=== PATIENT | female | born 2000 | race Caucasian/White ===

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

== ENCOUNTER → 2020-02-29 | Outpatient (REF) | payer OTHER ==
[2020-02-29 19:32] LABS: APPEARANCE, URINE HAZY (CLEAR); BACTERIA, URINE AUTO 1+ (NEGATIVE); BILIRUBIN, URINE AUTO NEGATIVE (NEGATIVE); BLOOD, URINE BLOOD NEGATIVE (NEGATIVE); COLOR, URINE YELLOW (YELLOW); GLUCOSE, URINE (UA) AUTO NEGATIVE (NEGATIVE); KETONE, URINE AUTO NEGATIVE (NEGATIVE); LEUKOCYTE ESTERASE, URINE AUTO 1+ (NEGATIVE); MUCUS, URINE SMALL (NEGATIVE); NITRITE, URINE AUTO NEGATIVE (NEGATIVE); PROTEIN, URINE AUTO NEGATIVE (NEGATIVE); RBC, URINE AUTO 2 /HPF (0-3); SPECIFIC GRAVITY URINE AUTO 1.016 (1.002-1.035); SQUAMOUS EPITHELIAL CELL UR AU 3 /HPF (0-6); UROBILINOGEN, URINE AUTO 0.2 mg/dL (0.0-2.0); WBC, URINE AUTO 16 /HPF (0-3)
== END ==
LOC: M LAB REF 16:52
PROVIDERS: ATTEND Pediatrics
DX: N39.0 Urinary tract infection, site not specified (principal)

== ENCOUNTER → 2020-03-29 | Outpatient (CLI) | payer OTHER ==
[2020-03-29 10:45] LABS: ALBUMIN 3.9 GM/DL (3.2-5.2); ALT/SGPT 17 U/L (12-78); BILIRUBIN,TOTAL 0.5 MG/DL (0.2-1.0); BLOOD UREA NITROGEN 15 MG/DL (7-18); CALCIUM LEVEL 8.9 MG/DL (8.5-10.1); CARBON DIOXIDE LEVEL 25 MEQ/L (21-32); CHLORIDE LEVEL 109 MEQ/L (98-107); CHOLESTEROL LEVEL 140 MG/DL (<200); CHOLESTEROL RISK RATIO 2.857 (<5); CREATININE FOR GFR 0.82 MG/DL (0.55-1.30); FREE T4 1.08 NG/DL (0.78-1.33); GLUCOSE, FASTING 86 MG/DL (70-100); HDL CHOLESTEROL 49 MG/DL (>40); LDL CHOLESTEROL 82 MG/DL (<100); NON-HDL-C 91 MG/DL; POTASSIUM SERUM 3.8 MEQ/L (3.5-5.1); SODIUM LEVEL 142 MEQ/L (136-145); TOTAL PROTEIN 7.2 GM/DL (6.4-8.2); TRIGLYCERIDES LEVEL 46 MG/DL (<150)
== END ==
LOC: M LAB 09:19
PROVIDERS: ATTEND Pediatrics
DX: R25.1 Tremor, unspecified (principal)

== ENCOUNTER → 2021-05-13 | Outpatient (REF) | payer OTHER | LOC: M WUC 15:32 | PROVIDERS: ATTEND Physician Assistant | DX: J03.90 Acute tonsillitis, unspecified (principal) ==

== ENCOUNTER → 2021-10-18 | Outpatient (REF) | payer OTHER ==
[2021-10-18 19:12] LABS: APPEARANCE, URINE MANUAL HAZY (CLEAR); BILIRUBIN, URINE MANUAL OBSCURED (NEGATIVE); BLOOD URINE MANUAL POSITIVE (NEGATIVE); COLOR, URINE MANUAL ORANGE (YELLOW); GLUCOSE, URINE (UA) MANUAL OBSCURED mg/dL (NEGATIVE); KETONE, URINE MANUAL OBSCURED mg/dL (NEGATIVE); LEUKOCYTE ESTERASE, URINE MAN OBSCURED (NEGATIVE); NITRITE, URINE MANUAL OBSCURED (NEGATIVE); PROTEIN, URINE MANUAL OBSCURED mg/dL (NEGATIVE); SPECIFIC GRAVITY,URINE MANUAL 1.025 (1.002-1.035); UROBILINOGEN, URINE MANUAL OBSCURED mg/dl (NORMAL)
[2021-10-18 19:24] LABS: BACTERIA, URINE LARGE AMOUNT; HYALINE CAST, URINE NONE SEEN /lpf (0-1); RBC, URINE NONE SEEN /hpf (0-3); SQUAMOUS EPITHELIAL CELL URINE SMALL AMOUNT /hpf (SMALL AMT)
== END ==
LOC: M LAB REF 18:27
PROVIDERS: ATTEND Physician Assistant
DX: N39.0 Urinary tract infection, site not specified (principal)

== ENCOUNTER 2022-11-25 16:43 | Outpatient (CLI) | payer OTHER ==
[~2022-11-25] VITALS: Ht 165.1 cm; Wt 87.6 kg
[~2022-11-25 16:43] MED LIST changes: +PRENTAB9 PO
[2022-11-25] MEDS ORDERED: FLUCONAZOLE 50MG TABLET PO ONE (17:30)
[2022-11-25] MEDS ORDERED: HOME MED LIST COMPLETE! XX SCH (17:35)
[2022-11-25 20:00] LABS: GC DNA AMPLIFICATION NEGATIVE (NEGATIVE)
== END 2022-11-25 17:50 | disposition home or self-care (01) ==
LOC: M LDO 16:43
PROVIDERS: ATTEND Obstetrics & Gynecology
DX: O23.593 Infection of other part of genital tract in pregnancy, third trimester (principal); Z3A.29 29 weeks gestation of pregnancy; Z88.0 Allergy status to penicillin; Z88.1 Allergy status to other antibiotic agents; Z88.2 Allergy status to sulfonamides; Z91.018 Allergy to other foods; Z91.040 Latex allergy status
CPT/HCPCS: 59025; 87810; 87850; G0463

== ENCOUNTER 2022-12-09 19:05 | Outpatient (CLI) | payer OTHER ==
[~2022-12-09] VITALS: Ht 165.1 cm; Wt 90.1 kg
[~2022-12-09 19:05] MED LIST changes: -ALBUTEROL SULFATE 2.5MG/0.5ML INH NEB SOLN INH PRN; -EPINEPHrine INJ 1 MG/ML 1ML AMP IM PRN; -IRON SUCROSE 300 MG in NS 250 ML OVER 90 MIN. IV ONE; -NS 1,000 ML IV SCH; -diphenhydrAMINE 50MG/ML VIAL IV PRN; -methylPREDNISolone 125MG 2ML VIAL IV PRN
[2022-12-09 19:41] VITALS: BP 122/56
== END 2022-12-09 20:20 | disposition home or self-care (01) ==
LOC: M LDO 19:05
PROVIDERS: ATTEND Obstetrics & Gynecology
DX: O26.893 Other specified pregnancy related conditions, third trimester (principal); N98.9 Complication associated with artificial fertilization, unspecified; N96 Recurrent pregnancy loss; Z3A.31 31 weeks gestation of pregnancy; Z88.0 Allergy status to penicillin; Z88.1 Allergy status to other antibiotic agents; Z91.018 Allergy to other foods; Z91.040 Latex allergy status
CPT/HCPCS: 59025; 76815; G0463

== ENCOUNTER → 2022-12-09 | Outpatient (CLI) | payer OTHER ==
[~2022-12-09] VITALS: Ht 167.6 cm; Wt 86.3 kg
[~2022-12-09] MED LIST changes: +ALBUTEROL SULFATE 2.5MG/0.5ML INH NEB SOLN INH PRN; +EPINEPHrine INJ 1 MG/ML 1ML AMP IM PRN; +IRON SUCROSE 300 MG in NS 250 ML OVER 90 MIN. IV ONE; +NS 1,000 ML IV SCH; +diphenhydrAMINE 50MG/ML VIAL IV PRN; +methylPREDNISolone 125MG 2ML VIAL IV PRN
[2022-12-09 13:06] VITALS: BP_SYST 138; BP_SYST 139; BP_DIAS 63; BP_DIAS 78; O2SAT 99
[2022-12-09 16:00] VITALS: BP 113/56; O2SAT 99
== END ==
LOC: M INFU 12:41
PROVIDERS: ATTEND Obstetrics & Gynecology
DX: D50.9 Iron deficiency anemia, unspecified (principal); Z88.0 Allergy status to penicillin; Z88.2 Allergy status to sulfonamides
CPT/HCPCS: 81001; 96365; 96366; J1756

== ENCOUNTER 2022-12-20 21:21 | Outpatient (CLI) | payer OTHER ==
[~2022-12-20] VITALS: Ht 165.1 cm; Wt 89.1 kg
[2022-12-20 21:40] VITALS: BP 110/64
[2022-12-20] MEDS ORDERED: FLUCONAZOLE 50MG TABLET PO ONE (22:40)
== END 2022-12-20 22:48 | disposition home or self-care (01) ==
LOC: M LDO 21:21
PROVIDERS: ATTEND Obstetrics & Gynecology
DX: O23.593 Infection of other part of genital tract in pregnancy, third trimester (principal); Z3A.33 33 weeks gestation of pregnancy; Z88.0 Allergy status to penicillin; Z88.2 Allergy status to sulfonamides; Z91.018 Allergy to other foods; Z91.040 Latex allergy status
CPT/HCPCS: 59025; G0463

== ENCOUNTER 2023-01-13 02:40 | Outpatient (CLI) | payer OTHER ==
[~2023-01-13] VITALS: Ht 165.1 cm; Wt 92.8 kg
[2023-01-13 03:07] VITALS: BP 126/73
[2023-01-13 04:25] VITALS: BP 127/59
[2023-01-13] MEDS ORDERED: FOSFOMYCIN TROMETHAMINE 3 GM POWDER PACKET (MONUROL) PO ONE (04:30)
[2023-01-13] MEDS ORDERED: CLOTRIMAZOLE 1% VAG CR 45 GM PV ONE ×2 (04:40→04:41)
== END 2023-01-13 04:43 | disposition home or self-care (01) ==
LOC: M LDO 02:40
PROVIDERS: ATTEND Obstetrics & Gynecology
DX: O23.593 Infection of other part of genital tract in pregnancy, third trimester (principal); B37.9 Candidiasis, unspecified; Z3A.36 36 weeks gestation of pregnancy; Z88.0 Allergy status to penicillin; Z88.2 Allergy status to sulfonamides; Z88.1 Allergy status to other antibiotic agents; Z91.040 Latex allergy status; Z91.018 Allergy to other foods
CPT/HCPCS: 59025; 81001; 87086; G0463

== ENCOUNTER 2023-01-23 22:25 | Outpatient (CLI) | payer OTHER ==
[~2023-01-23] VITALS: Ht 165.1 cm; Wt 92.2 kg
[2023-01-23 22:45] VITALS: BP 129/60
[2023-01-23] MEDS ORDERED: HOME MED LIST COMPLETE! XX SCH (22:55)
[2023-01-23] MEDS ORDERED: ACETAMINOPHEN 500 MG TAB PO ONE (23:45)
[2023-01-23 23:49] LABS: HEMATOCRIT 31.6 % (36.0-47.0); HEMOGLOBIN 10.5 g/dl (12.0-15.5); MEAN CORPUSCULAR HEMOGLOBIN 29.2 pg (27.0-33.0); MEAN CORPUSCULAR HGB CONC 33.2 g/dl (32.0-36.5); MEAN CORPUSCULAR VOLUME 87.8 fl (80.0-96.0); PLATELET COUNT, AUTOMATED 181 10^3/uL (150-450); WHITE BLOOD COUNT 7.3 10^3/uL (4.0-10.0)
[2023-01-24 00:16] LABS: ALBUMIN 2.5 G/DL (3.2-5.2); ALKALINE PHOSPHATASE 166 U/L (46-116); ALT/SGPT 27 U/L (7.0-40); AST/SGOT 21 U/L (<34); BILIRUBIN,TOTAL 0.2 MG/DL (0.3-1.2); BLOOD UREA NITROGEN 8 MG/DL (9-23); CALCIUM LEVEL 8.6 MG/DL (8.5-10.1); CARBON DIOXIDE LEVEL 21 MMOL/L (20-31); CHLORIDE LEVEL 107 MMOL/L (98-107); GLOMERULAR FILTRATION RATE > 60.0 (>60); GLUCOSE, FASTING 104 MG/DL (60-100); POTASSIUM SERUM 3.7 MMOL/L (3.5-5.1); SODIUM LEVEL 138 MMOL/L (136-145); TOTAL PROTEIN 5.5 G/DL (5.7-8.2)
[2023-01-24 00:51] LABS: APPEARANCE, URINE CLOUDY (CLEAR); BACTERIA, URINE AUTO 1+ (NEGATIVE); BILIRUBIN, URINE AUTO NEGATIVE (NEGATIVE); BLOOD, URINE BLOOD 3+ (NEGATIVE); COLOR, URINE RED (YELLOW); GLUCOSE, URINE (UA) AUTO NEGATIVE (NEGATIVE); KETONE, URINE AUTO NEGATIVE (NEGATIVE); LEUKOCYTE ESTERASE, URINE AUTO NEGATIVE (NEGATIVE); MUCUS, URINE LARGE (NEGATIVE); NITRITE, URINE AUTO NEGATIVE (NEGATIVE); PROTEIN, URINE AUTO 2+ mg/dL (NEGATIVE); RBC, URINE AUTO TNTC /HPF (0-3); SPECIFIC GRAVITY URINE AUTO 1.028 (1.002-1.035); SQUAMOUS EPITHELIAL CELL UR AU 0 /HPF (0-6); WBC, URINE AUTO 0 /HPF (0-3)
[2023-01-24] MEDS ORDERED: diphenhydrAMINE 25MG CAP PO ONE (01:00)
[2023-01-24] MEDS ORDERED: METOCLOPRAMIDE 10MG TAB PO ONE (01:00)
== END 2023-01-24 01:59 | disposition home or self-care (01) ==
LOC: M LDO 22:25
PROVIDERS: ATTEND Obstetrics & Gynecology
DX: O98.513 Other viral diseases complicating pregnancy, third trimester (principal); U07.1 COVID-19; Z3A.38 38 weeks gestation of pregnancy; Z88.0 Allergy status to penicillin; Z88.1 Allergy status to other antibiotic agents; Z88.2 Allergy status to sulfonamides; Z91.018 Allergy to other foods; Z91.040 Latex allergy status
CPT/HCPCS: 59025; 80053; 81001; 85027; 87486; 87581; 87633; 87798; G0463

== ENCOUNTER 2023-02-03 19:43 | Inpatient (IN) | payer OTHER ==
[~2023-02-03] VITALS: Ht 165.1 cm; Wt 94.2 kg
[2023-02-03 20:08] VITALS: BP 127/70
[2023-02-03] MEDS ORDERED: METHYLERGONOVINE MALEATE 0.2MG/ML 1ML VIAL IM PRN (21:45)
[2023-02-03] MEDS ORDERED: TRANEXAMIC ACID INJection 1,000 MG in NS 100 ML IV PRN (21:45)
[2023-02-03] MEDS ORDERED: LIDOCAINE 1% MDV 20ML VIAL INFIL PRN (21:45)
[2023-02-03] MEDS ORDERED: OXYTOCIN DRIP 30 UNITS in IV 1 EA IV PRN ×4 (21:45)
[2023-02-03 22:09] LABS: HEMATOCRIT 39.8 % (36.0-47.0); HEMOGLOBIN 12.9 g/dl (12.0-15.5); MEAN CORPUSCULAR HEMOGLOBIN 28.7 pg (27.0-33.0); MEAN CORPUSCULAR HGB CONC 32.4 g/dl (32.0-36.5); MEAN CORPUSCULAR VOLUME 88.4 fl (80.0-96.0); PLATELET COUNT, AUTOMATED 213 10^3/uL (150-450)
[2023-02-03] MEDS ORDERED: NALOXONE INJ 0.4MG/1ML VIAL IV PRN (23:40)
[2023-02-03] MEDS ORDERED: EPIDURAL/PCA KEYS XX PRN (23:40)
[2023-02-03] MEDS ORDERED: diphenhydrAMINE 50MG/ML VIAL IV PRN (23:40)
[2023-02-03] MEDS ORDERED: ONDANSETRON 4MG 2ML VIAL IV PRN (23:40)
[2023-02-03] MEDS ORDERED: LR 500 ML IV PRN (23:40)
[2023-02-03] MEDS ORDERED: ePHEDrine SULFATE 25 MG/5 ML(5MG/ML) SYRINGE IVP PRN (23:40)
[2023-02-03 23:43] VITALS: BP 135/74
[2023-02-03 23:48] VITALS: BP 122/70
[2023-02-03] MEDS: LR 1,000 ML IV SCH (23:50)
[2023-02-03] MEDS: FENTANYL/ROPIVACAINE/NACL BAG 100 ML EPIDURAL SCH (23:51)
[2023-02-03 23:53] VITALS: BP 123/68
[2023-02-03 23:59] VITALS: BP 127/75
[2023-02-04] VITALS (55 sets, daily range): BP systolic 100–144; BP diastolic 51–87; TEMP 98.1; O2SAT 96–97
[2023-02-04] MEDS: LR 1,000 ML IV SCH ×3 (09:10→18:05)
[2023-02-04] MEDS: FENTANYL/ROPIVACAINE/NACL BAG 100 ML EPIDURAL SCH (11:05)
[2023-02-04] MEDS ORDERED: diphenhydrAMINE 50MG/ML VIAL IM ONE (12:30)
[2023-02-04] MEDS ORDERED: diphenhydrAMINE 50MG/ML VIAL IV ONE ×2 (13:15→16:00)
[2023-02-04] MEDS ORDERED: CLINDAMYCIN 900 MG in IV 1 EA IV ONE (16:30)
[2023-02-04] MEDS ORDERED: AZITHROMYCIN INJ 500 MG, VIAL MATE ADAPTER 1 EACH in NS 250 ML IV ONE (16:30)
[2023-02-04] MEDS ORDERED: BICITRA 30ML SOLN UDC PO ONE (16:40)
[2023-02-04] MEDS ORDERED: GENTAMICIN IV ONE (17:00)
[2023-02-04] MEDS ORDERED: D5W IV ONE (17:00)
[2023-02-04] MEDS ORDERED: OXYTOCIN DRIP 30 UNITS in IV 1 EA IV SCH ×5 (17:15→18:05)
[2023-02-04] MEDS ORDERED: ONDANSETRON 4MG 2ML VIAL As Ordered ONE (17:17)
[2023-02-04] MEDS ORDERED: LIDOCAINE 2% W/EPINEPHRINE 20ML VIAL **PRES FREE As Ordered ONE (17:17)
[2023-02-04] MEDS ORDERED: KETOROLAC 60MG 2ML VIAL As Ordered ONE (17:17)
[2023-02-04] MEDS ORDERED: OXYTOCIN 30UNITS IN 0.9% NaCl 500ML IV BAG As Ordered ONE (17:19)
[2023-02-04] MEDS ORDERED: ACETAMINOPHEN 1000MG 100ML IV BAG As Ordered ONE (17:19)
[2023-02-04] MEDS ORDERED: MORPHINE PRES-FREE INJ 10 MG/10 ML VIAL As Ordered ONE (17:44)
[2023-02-04] MEDS ORDERED: MEPERIDINE 50 MG/ML 1ML VIAL As Ordered ONE (17:47)
[2023-02-04] MEDS ORDERED: RHOGAM 300MCG (1500IU) INJ IM SCH (18:05)
[2023-02-04] MEDS ORDERED: SIMETHICONE 80MG CHEW TAB PO PRN (18:05)
[2023-02-04] MEDS ORDERED: MOM 30ML SUSPENSION UDC PO PRN (18:05)
[2023-02-04] MEDS ORDERED: METHYLERGONOVINE MALEATE 0.2 MG TAB PO PRN (18:05)
[2023-02-04] MEDS ORDERED: METOCLOPRAMIDE INJ 10MG/2ML VIAL IV PRN (18:05)
[2023-02-04] MEDS ORDERED: oxyCODONE 5MG TAB PO PRN (18:05)
[2023-02-04] MEDS ORDERED: ONDANSETRON 4MG 2ML VIAL IV PRN (18:05)
[2023-02-04] MEDS: DOCUSATE SODIUM 100MG CAPSULE PO SCH (21:11)
[2023-02-04] MEDS: ACETAMINOPHEN 500 MG TAB PO SCH (21:12)
[2023-02-04] MEDS: KETOROLAC 30 MG/ML 1ML VIAL IV SCH (23:46)
[2023-02-05] MEDS: LR 1,000 ML IV SCH (01:49)
[2023-02-05] MEDS: ACETAMINOPHEN 500 MG TAB PO SCH ×4 (01:49→19:40)
[2023-02-05 02:00] VITALS: BP 122/58; O2SAT 97
[2023-02-05] MEDS: KETOROLAC 30 MG/ML 1ML VIAL IV SCH ×3 (05:01→11:26)
[2023-02-05] MEDS ORDERED: diphenhydrAMINE 50MG/ML VIAL IV PRN (05:35)
[2023-02-05 06:00] VITALS: BP 131/63; O2SAT 98
[2023-02-05 07:32] LABS: MEAN CORPUSCULAR HGB CONC 31.6 g/dl (32.0-36.5); MEAN CORPUSCULAR VOLUME 88.5 fl (80.0-96.0); PLATELET COUNT, AUTOMATED 160 10^3/uL (150-450); RED BLOOD COUNT 3.47 10^6/uL (4.00-5.40)
[2023-02-05 07:40] LABS: HEMATOCRIT 30.7 % (36.0-47.0); HEMOGLOBIN 9.7 g/dl (12.0-15.5)
[2023-02-05] MEDS: DOCUSATE SODIUM 100MG CAPSULE PO SCH ×2 (07:42→21:01)
[2023-02-05] MEDS: PRENATAL VITAMINS CHEWABLE TABLET PO SCH (07:42)
[2023-02-05 10:00] VITALS: BP 142/82; O2SAT 97
[2023-02-05 14:00] VITALS: BP 123/64; O2SAT 99
[2023-02-05] MEDS ORDERED: SERT25TA85 PO (14:39)
[2023-02-05 18:00] VITALS: BP 145/65; O2SAT 100
[2023-02-05] MEDS: IBUPROFEN 800 MG TAB PO SCH (19:40)
[2023-02-05] MEDS ORDERED: SERTRALINE HCL 25 MG TABLET PO SCH (21:00)
[2023-02-05] MEDS: oxyCODONE 5MG TAB PO PRN (21:23)
[2023-02-05 22:00] VITALS: BP 102/58; O2SAT 97
[2023-02-06 02:00] VITALS: BP 140/84; O2SAT 100
[2023-02-06] MEDS: ACETAMINOPHEN 500 MG TAB PO SCH (02:08)
[2023-02-06] MEDS: IBUPROFEN 800 MG TAB PO SCH ×2 (04:09→10:22)
[2023-02-06 06:00] VITALS: BP 115/60; O2SAT 97
[2023-02-06] MEDS: oxyCODONE 5MG TAB PO PRN ×2 (06:58→13:06)
[2023-02-06] MEDS ORDERED: OXYC-517 PO (07:47)
[2023-02-06] MEDS ORDERED: ACET-683 PO (07:47)
[2023-02-06] MEDS ORDERED: IBUP80TA PO (07:47)
[2023-02-06] MEDS ORDERED: COLA100C5 PO (07:47)
[2023-02-06] MEDS: PRENATAL VITAMINS CHEWABLE TABLET PO SCH (08:31)
[2023-02-06] MEDS: DOCUSATE SODIUM 100MG CAPSULE PO SCH (08:31)
[2023-02-06] MEDS ORDERED: MEASLES,MUMPS,RUBELLA VACCINE INJ (MMR-II) SC.IMMUN ONE (09:00)
[2023-02-06 10:00] VITALS: BP 121/65; O2SAT 100
== END 2023-02-06 13:45 | disposition home or self-care (01) | DRG 773 ==
LOC: M LDO 19:43 → M LDI 21:19 → M OBS 02-04 19:27 → UNDODISIN 02-06 13:45
PROVIDERS: ADMIT Obstetrics & Gynecology; ATTEND Obstetrics & Gynecology
PROC: 10907ZC Drainage of Amniotic Fluid, Therapeutic from Products of Conception, Via Natural or Artificial Opening (ICD-10-PCS; 2023-02-04)
PROC: 10D00Z1 Extraction of Products of Conception, Low, Open Approach (ICD-10-PCS; principal; 2023-02-04 17:00)
DX: O62.0 Primary inadequate contractions (principal); Z88.0 Allergy status to penicillin; Z88.2 Allergy status to sulfonamides; Z91.040 Latex allergy status; Z91.018 Allergy to other foods; O77.0 Labor and delivery complicated by meconium in amniotic fluid; O69.81X0 Labor and delivery complicated by cord around neck, without compression, not applicable or unspecified; Z3A.39 39 weeks gestation of pregnancy; Z37.0 Single live birth